=== PATIENT | female | born 1960 | race Caucasian/White ===

== ENCOUNTER 2019-08-11 00:38 | Outpatient (CLI) | payer BC, SELFPAY ==
--- NOTE | 2019-08-11 11:29 | DI.MAMMO_ITS ---
EXAM: MG MAMMO SCREENING CLINICAL HISTORY: SCREENING, Z12.31 TECHNIQUE: Bilateral full field digital CC and MLO mammographic images were obtained with 3D tomosyn thesis and utilizing computer aided detection (CAD). COMPARISON: No priors for comparison. FINDINGS: Masses/Architectural Distortion: None seen. Microcalcifications: No suspicious pleomorphic-type are seen. Skin Thickening/Nipple Retraction: None. IMPRESSION: 1. No significant interval change with no specific features of malignancy noted. 2. Unless there is more urgent need, screening mammography is recommended, as per [employer] guidelines. BI-RADS Category 1 - Negative Breast Density - Category C - Heterogeneously dense The mammogram demonstrates the patient's breast tissue is dense. Dense breast tissue is very common a nd is not abnormal but dense breast tissue can make it harder to find cancer on a mammogram. Also, de nse breast tissue may increase their breast cancer risk. This information about the result of the [facility] mogram report was provided to the patient to raise their awareness. Use this report when you speak wi th the patient about their risks for breast cancer, which includes their family history. At that time , you may recommend for more screening tests (Ultrasound or MRI) as they might be useful based on the ir risk. A negative radiographic report should not delay biopsy if a dominant or clinically suspicious mass is present. Up to ten percent of cancers are not identified on mammography. A negative report may reinforce clinical impression. Adenosis and dense breasts may obscure an underlying neoplasm. False positive reports average 6 to 10%. Patient will receive a letter notifying them of these results.
== END 2019-08-11 00:58 ==
PROVIDERS: PCP Nurse Practitioner Family; Visit Provider Nurse Practitioner Family
DX: Z12.31 Encounter for screening mammogram for malignant neoplasm of breast (principal)
CPT/HCPCS: 77063; 77067

== ENCOUNTER 2020-05-19 12:20 | Outpatient (REF) | payer BC, SELFPAY ==
--- NOTE | 2020-05-19 10:45 | PAPFT_PTH ---
PATIENT: Nubia Adler LOC: [facility], [facility]N #:[id number] AGE/SX: 59/F ROOM: RE05/19/[address]: Evy Mei : 1960 BED: DIS: 05/19/2020 SPEC #: [id number] RECD: 05/19/20 12:51 STATUS: SHAHZAD RELang #: [id number] JOHN: 05/19/20 10:[address]: Evy Mei DEPT: [facility] Cytology RECD BY: Norma Marks Tissues: 1 - CX/ENDOCX FOR PAP SMEARS Procedures: PAP THIN PREP/[facility] Screening Comments: [id number] (UNSATISFACTORY FOR EVALUATION)
[2020-05-19 12:55] LABS: HCT 36.4 % (36.0-46.0); HGB 12.2 g/dL (11.2-15.7); MCH 27.7 pg (27.0-33.0); MCHC 33.5 % (32.0-36.0); MCV 82.5 fL (80-95); MPV 10.4 fL (8.0-11.0); Platelet Count 355 10^3/uL (130-400); RBC 4.41 10^6/uL (3.93-5.22); RDW 13.2 % (11.7-14.6); RDW-SD 40.4 fL; WBC 8.45 10^3/uL (4.4-10.8)
[2020-05-19 13:35] LABS: Anion Gap 11.3 mmol/L (3-11); BUN 14 mg/dL (7-18); CO2 24.7 mmol/L (21.0-32.0); CREATININE 0.8 mg/dL (0.55-1.02); Calcium 8.7 mg/dL (8.5-10.1); Chloride 104 mmol/L (98-107); Glucose 82 mg/dL (74-106); Sodium 140 mmol/L (136-145); TSH (W/Ref FT4) 1.71 uIU/mL (0.36-3.74)
[2020-05-19 14:44] LABS: Iron 63 ug/dL (50-170); Total Iron Binding Capacity 324 ug/dL (250-450); Transferrin Sat 19 % (15-50)
[2020-05-19 16:05] LABS: ALT 24 U/L (14-59); AST 17 U/L (15-37)
[2020-05-19 16:16] LABS: Calculated LDL 198 mg/dL (<100); Cholesterol 294 mg/dL (<200); HDL Cholesterol 57 mg/dL (40-60); Triglyceride 198 mg/dL (<150)
== END 2020-05-19 12:21 | disposition home or self-care (01) ==
LOC: NCHCN 12:20
PROVIDERS: PCP Nurse Practitioner Family; Visit Provider Nurse Practitioner Family
DX: R53.83 Other fatigue (principal); Z00.00 Encounter for general adult medical examination without abnormal findings; Z12.4 Encounter for screening for malignant neoplasm of cervix; Z01.419 Encounter for gynecological examination (general) (routine) without abnormal findings; R87.615 Unsatisfactory cytologic smear of cervix
CPT/HCPCS: 80048; 80061; 85027; 88142; 83540; 83550; 84443; 84450; 84460

== ENCOUNTER 2020-06-29 17:04 | Outpatient (REF) | payer BC, SELFPAY ==
--- NOTE | 2020-06-29 16:30 | PAPFT_PTH ---
PAT[facility]: [facility] Adler [id number]GE/SX: 59/F ROOM: RE06/29/[address]: Evy Mei : 1960 BED: DIS: 06/29/2020 SPEC #: [id number] RECD: 06/30/20 12:53 STATUS: SHAHZAD FLORES #: [id number] JOHN: 06/29/20 16:[address]: Evy Mei DEPT: [facility] Cytology RECD BY: Norma Marks Tissues: 1 - CX/ENDOCX FOR PAP SMEARS Procedures: PAP THIN PREP/UVM Screening Comments: [id number] (UNSATISFACTORY FOR EVALUATION)
== END 2020-06-29 17:05 | disposition home or self-care (01) ==
LOC: NCHCN 17:04
PROVIDERS: PCP Nurse Practitioner Family; Visit Provider Nurse Practitioner Family
DX: Z00.00 Encounter for general adult medical examination without abnormal findings (principal); Z12.4 Encounter for screening for malignant neoplasm of cervix; Z01.419 Encounter for gynecological examination (general) (routine) without abnormal findings; R87.615 Unsatisfactory cytologic smear of cervix
CPT/HCPCS: 88142

== ENCOUNTER 2020-07-05 16:18 | Outpatient (REF) | payer BC, SELFPAY ==
--- NOTE | 2020-07-05 15:50 | CER_PTH ---
PATIENT: Nubia Adler LOC: N U#:[id number] AGE/SX: 59/F ROOM: RE07/05/[address]: Stephanie Dick DO : 1960 BED: DIS: 07/05/2020 SPEC #: [id number] RECD: 07/05/20 17:39 STATUS: SOUReyes REQ #: [id number] JOHN: 07/05/20 15:[address]: Stephanie Dick DEPT: Surgical Specimen RECD BY: Norma Marks ENTERED: 07/05/20 17:40 SP TYPE: CER OTHR DR: Evy Mei Tissues: 1 - CERVICAL BIOPSY Procedures: GROSS AND MICRO LEVEL 4 Comments: [id number]
== END 2020-07-05 16:19 | disposition home or self-care (01) ==
LOC: LBN 16:18
PROVIDERS: PCP Nurse Practitioner Family; Visit Provider Obstetrics & Gynecology
DX: N84.1 Polyp of cervix uteri (principal); N88.8 Other specified noninflammatory disorders of cervix uteri
CPT/HCPCS: 88305

== ENCOUNTER 2020-09-06 17:57 | Outpatient (REF) | payer BC, SELFPAY ==
--- NOTE | 2020-09-06 15:40 | PAPFT_PTH ---
PATIENT: Nubia Adler [id number] AGE/SX: 59/F ROOM: RE09/06/[address]: Evy Mei : 1960 BED: DIS: 09/06/2020 SPEC #: [id number] RECD: 09/07/20 12:31 STATUS: SHAHZAD RELang #: [id number] JOHN: 09/06/20 15:[address]: Evy Mei DEPT: [facility] Cytology RECD BY: Norma Marks Tissues: 1 - CX/ENDOCX FOR PAP SMEARS Procedures: PAP THIN PREP/UVM Screening HPV DNA PROBE Comments: [id number]
== END 2020-09-06 17:58 | disposition home or self-care (01) ==
LOC: NCHCN 17:57
PROVIDERS: PCP Nurse Practitioner Family; Visit Provider Nurse Practitioner Family
DX: Z00.00 Encounter for general adult medical examination without abnormal findings (principal); Z12.4 Encounter for screening for malignant neoplasm of cervix; Z01.419 Encounter for gynecological examination (general) (routine) without abnormal findings; Z11.51 Encounter for screening for human papillomavirus (HPV)
CPT/HCPCS: 88142; 87624

== ENCOUNTER 2020-09-18 19:21 | Outpatient (REF) | payer BC, SELFPAY | END 2020-09-18 19:22 | disposition home or self-care (01) | LOC: NCHCN 19:21 | PROVIDERS: PCP Nurse Practitioner Family; Visit Provider Family Medicine | DX: R30.0 Dysuria (principal) | CPT/HCPCS: 87086 ==

== ENCOUNTER 2021-02-08 16:40 | Outpatient (REF) | payer BC, SELFPAY ==
[2021-02-09 11:11] LABS: COVID-19 RT-PCR UVMMC Result Negative (Negative)
== END 2021-02-08 16:41 | disposition home or self-care (01) ==
LOC: NCHCN 16:40
PROVIDERS: PCP Nurse Practitioner Family; Visit Provider Nurse Practitioner Family
DX: Z20.822 Contact with and (suspected) exposure to COVID-19 (principal)
CPT/HCPCS: U0003

== ENCOUNTER 2021-04-17 14:45 | Outpatient (REF) | payer BC, SELFPAY ==
[2021-04-17 16:21] LABS: ALT 25 U/L (14-59); AST 17 U/L (15-37); Anion Gap 8.7 mmol/L (3-11); BUN 12 mg/dL (7-18); CO2 27.3 mmol/L (21.0-32.0); CREATININE 0.8 mg/dL (0.55-1.02); Calcium 8.8 mg/dL (8.5-10.1); Calculated LDL 205 mg/dL (<100); Chloride 103 mmol/L (98-107); Cholesterol 299 mg/dL (<200); Glucose 82 mg/dL (74-106); HDL Cholesterol 56 mg/dL (40-60); Potassium 4.5 mmol/L (3.5-5.1); Sodium 139 mmol/L (136-145); Triglyceride 191 mg/dL (<150)
[2021-04-19 10:13] LABS: Lipoprotein (a) 144 nmol/L (<75)
== END 2021-04-17 14:46 | disposition home or self-care (01) ==
LOC: NCHCN 14:45
PROVIDERS: PCP Nurse Practitioner Family; Visit Provider Nurse Practitioner Family
DX: E78.5 Hyperlipidemia, unspecified (principal); R53.83 Other fatigue; R03.0 Elevated blood-pressure reading, without diagnosis of hypertension
CPT/HCPCS: 80048; 80061; 83695; 84450; 84460

== ENCOUNTER 2021-06-11 01:54 | Outpatient (CLI) | payer BC, SELFPAY ==
--- NOTE | 2021-06-11 16:40 | DI.MAMMO_ITS ---
Exam(s) MAMMO SCREENING EXAM: MAMMO SCREENING CLINICAL HISTORY: SCREENING FOR BREAST CANCER Z12.39. TECHNIQUE: Bilateral full field digital CC and MLO mammographic images were obtained with 3D tomosyn thesis and utilizing computer aided detection (CAD). COMPARISON: Prior baseline mammogram of July 2019 was reviewed. FINDINGS: Fibroglandular tissue is again noted be moderately dense. There are no CAD designations. There are no new spiculated masses nor malignant appearing microcalcification groups. Asymmetric density in the immediate para areolar region of the left breast seen on the CC 3D images i s unchanged There is no significant architectural distortion nor skin thickening-retraction. IMPRESSION: Stable benign-appearing finding. No radiographic evidence of malignancy BI-RADS Category 2 - Benign Findings Breast Density - Category C - Heterogeneously dense Breast density Category C or D implies that the patient has dense breast tissue. Dense breast tissue can make it harder to find cancer on a mammogram. Dense breast tissue is also associated with an incr eased risk of breast cancer. This information about the result of the mammogram report was provided to the patient to raise their awareness. Use this report when you speak with the patient about their risks for breast cancer, which includes their family history. At that time, you may recommend additional screening tests (Ultrasoun d or MRI) as these tests may add significant information. A negative radiographic report should not delay biopsy if a dominant or clinically suspicious mass is present. Up to ten percent of cancers are not identified on mammography. A negative report may reinforce clinical impression. Adenosis and dense breasts may obscure an underlying neoplasm. False positive reports average 6 to 10%. Patient will receive a letter notifying them of these results.
== END 2021-06-11 02:14 ==
PROVIDERS: PCP Nurse Practitioner Family; Visit Provider Nurse Practitioner Family
DX: Z12.31 Encounter for screening mammogram for malignant neoplasm of breast (principal)
CPT/HCPCS: 77063; 77067

== ENCOUNTER → 2021-12-25 00:59 | Outpatient (CLI) | payer BC, SELFPAY ==
--- NOTE | 2021-12-25 | DI.CT_ITS ---
Exam(s) CT BRAIN CTA EXAM: CT BRAIN CTA CLINICAL HISTORY: FAMILY H/O ANEURYSM,Z92.0, HEADACHE,R51.9. TECHNIQUE: Imaging Protocol: Both noninfused and contrast infused CT scans of the brain were perform ed. IV Contrast Dose =100 cc Axial computed tomography images with coronal and sagittal reformatted images were created and review ed COMPARISON: No exams were available for comparison FINDINGS: Field of view of this study is from the skull base up; neck was not scanned. Anterior circulation: Both internal carotid arteries are patent in the skull base-carotid canals. Th e internal carotid arteries are also patent within the cavernous sinuses and supraclinoid aspects. N o aneurysms at this level. Both A1 segments are patent as are the anterior cerebral arteries. There is no evidence of aneurysm at the level of the anterior communicating artery. Both middle cerebral arteries are patent without evidence of significant focal narrowing and no aneur ysms evident. Posterior circulation: Both vertebral arteries contribute to the formation of the basilar artery at t he skull base and the basilar artery ascends with normal luminal diameter in the midline. Distally i t gives off patent superior cerebellar arteries and above this level terminates as patent posterior c erebral arteries. There is no aneurysm of the tip of the basilar artery nor elsewhere in the redding- of-[place]. BRAIN: No evidence of intracranial hemorrhage, mass effect, or shift of midline structures. No extra -axial fluid collections. Ventricles are not enlarged or shifted. There is no blood within the vent ricular system nor within the basal cisterns. There are no ring enhancing lesions in the brain. There is no abnormal meningeal enhancement, focal nor diffuse. IMPRESSION: 1. Patent intracranial arteries. 2. No evidence of intracranial aneurysm, as per request. 3. No ring enhancing lesions in the brain nor abnormal meningeal enhancement. 4. Essentially no significant intracranial findings. Incidentally noted is seen fluid level in the right maxillary sinus consistent with sinusitis. No mraietta ne dehiscence. The left maxillary sinus is clear as are the sphenoid and frontal sinuses and ethmoid al air cells. Mastoid air cells are clear as are the aditus ad antrum and middle ear cavities. RADIATION DOSE DELIVERED: 1,817.36mGy.cm Total DLP DATA REPOSITORY: All CT scans at this facility are submitted to the National Radiology Data Registry (NRDR) Dose Index Registry (DIR) with the [employer] (A[employer]). RADIATION OPTIMIZATION: All CT scans at this facility use at least one of these dose optimization te chniques: automated exposure control; mA and/or kV adjustment per patient size (includes targeted exa ms where dose is matched to clinical indication); or iterative reconstruction.
[2021-12-25 13:13] LABS: CREATININE 0.8 mg/dL (0.55-1.02); Estimated GFR 83.78 (mL/min/1.73m2)
[2021-12-25] MEDS: Omnipaque 350 MG/ML 500 ML BTL-Imaging package IJ (14:22)
[2021-12-25] MEDS: Normal Saline Flush 10 ML SYR IVP (14:24)
== END ==
PROVIDERS: PCP Nurse Practitioner Family; Visit Provider Nurse Practitioner Family
DX: R51.9 Headache, unspecified (principal); Z92.0 Personal history of contraception
CPT/HCPCS: 70496; 82565

== ENCOUNTER 2022-04-23 13:36 | Outpatient (REF) | payer BC, SELFPAY ==
[2022-04-23 14:54] LABS: HCT 38.3 % (36.0-46.0); HGB 12.5 g/dL (11.2-15.7); MCH 27.8 pg (27.0-33.0); MCHC 32.6 % (32.0-36.0); MCV 85 fL (80-95); MPV 10.5 fL (8.0-11.0); Platelet Count 373 10^3/uL (130-400); RBC 4.49 10^6/uL (3.93-5.22); RDW 12.8 % (11.7-14.6); WBC 7.71 10^3/uL (4.4-10.8)
[2022-04-23 15:09] LABS: ALT 23 U/L (14-59); AST 21 U/L (15-37); Calculated LDL 210 mg/dL (<100); Cholesterol 307 mg/dL (<200); HDL Cholesterol 61 mg/dL (40-60); Triglyceride 182 mg/dL (<150)
== END 2022-04-23 13:37 | disposition home or self-care (01) ==
LOC: NCHCN 13:36
PROVIDERS: PCP Nurse Practitioner Family; Visit Provider Nurse Practitioner Family
DX: Z00.00 Encounter for general adult medical examination without abnormal findings (principal); E78.5 Hyperlipidemia, unspecified; F32.89 Other specified depressive episodes
CPT/HCPCS: 80061; 85027; 84450; 84460

== ENCOUNTER 2022-06-18 01:12 | Outpatient (CLI) | payer BC, SELFPAY ==
--- NOTE | 2022-06-18 | DI.MAMMO_ITS ---
Exam(s) MAMMO SCREENING EXAM: MAMMO SCREENING CLINICAL HISTORY: SCREENING, Z12.39 TECHNIQUE: Bilateral full field digital CC and MLO mammographic images were obtained with 3D tomosyn thesis and utilizing computer aided detection (CAD). COMPARISON: Available for comparison. FINDINGS: Masses/Architectural Distortion: None seen. Microcalcifications: No suspicious pleomorphic-type are seen. Skin Thickening/Nipple Retraction: None. IMPRESSION: 1. No significant interval change with no specific features of malignancy noted. 2. Unless there is more urgent need, screening mammography is recommended, as per [employer] guidelines. BI-RADS Category 1 - Negative Breast Density - Category C - Heterogeneously dense Breast density category C or D implies that the patient has dense breast tissue. Dense breast tissue is very common and is not abnormal but dense breast tissue can make it harder to find cancer on a ma mmogram. Also, dense breast tissue may increase their breast cancer risk. This information about the result of the mammogram report was provided to the patient to raise their awareness. Use this report when you speak with the patient about their risks for breast cancer, which includes their family hist ory. At that time, you may recommend for more screening tests (Ultrasound or MRI) as they might be us eful based on their risk. A negative radiographic report should not delay biopsy if a dominant or clinically suspicious mass is present. Up to ten percent of cancers are not identified on mammography. A negative report may reinforce clinical impression. Adenosis and dense breasts may obscure an underlying neoplasm. False positive reports average 6 to 10%. Patient will receive a letter notifying them of these results.
== END 2022-06-18 01:32 ==
LOC: DI 01:13
PROVIDERS: PCP Nurse Practitioner Family; Visit Provider Nurse Practitioner Family
DX: Z12.31 Encounter for screening mammogram for malignant neoplasm of breast (principal)
CPT/HCPCS: 77063; 77067

== ENCOUNTER 2022-06-25 16:43 | Outpatient (REF) | payer BC, SELFPAY ==
[2022-06-25 22:00] LABS: ALT 25 U/L (14-59); AST 17 U/L (15-37); Alkaline Phosphatase 129 U/L (46-116); Anion Gap 8.7 mmol/L (3-11); BUN 14 mg/dL (7-18); Bilirubin, Total 0.3 mg/dL (0.2-1.0); CO2 28.3 mmol/L (21.0-32.0); CREATININE 0.8 mg/dL (0.55-1.02); Calcium 9.1 mg/dL (8.5-10.1); Chloride 106 mmol/L (98-107); Estimated GFR 83.78 (mL/min/1.73m2); Glucose 103 mg/dL (74-106); Potassium 4.4 mmol/L (3.5-5.1); Sodium 143 mmol/L (136-145); Total Protein 7.1 g/dL (6.4-8.2)
[2022-06-27 12:53] LABS: IgA 188 mg/dL (85-499); Interpretation (See Note); Tissue Transglutaminase IgA <1.2 U/mL (<4.0)
== END 2022-06-25 16:44 | disposition home or self-care (01) ==
LOC: NCHCN 16:43
PROVIDERS: PCP Nurse Practitioner Family; Visit Provider Nurse Practitioner Family
DX: R14.0 Abdominal distension (gaseous) (principal)
CPT/HCPCS: 80053; 82784; 83516

== ENCOUNTER 2023-05-02 15:46 | Outpatient (REF) | payer BC, SELFPAY ==
[2023-05-02 20:59] LABS: HCT 38.3 % (36.0-46.0); HGB 12.6 g/dL (11.2-15.7); MCH 27.8 pg (27.0-33.0); MCHC 32.9 % (32.0-36.0); MCV 84 fL (80-95); MPV 10.2 fL (8.0-11.0); Platelet Count 381 10^3/uL (130-400); RBC 4.54 10^6/uL (3.93-5.22); RDW 13.8 % (11.7-14.6); RDW-SD 42.7 fL; WBC 9.59 10^3/uL (4.4-10.8)
[2023-05-02 21:14] LABS: ALT 23 U/L (14-59); AST 17 U/L (15-37); Albumin 3.8 g/dL (3.4-5.0); Alkaline Phosphatase 134 U/L (46-116); Anion Gap 8.1 mmol/L (3-11); BUN 10 mg/dL (7-18); Bilirubin, Total 0.3 mg/dL (0.2-1.0); CO2 28.9 mmol/L (21.0-32.0); CREATININE 0.7 mg/dL (0.55-1.02); Calcium 8.8 mg/dL (8.5-10.1); Calculated LDL 204 mg/dL (<100); Chloride 106 mmol/L (98-107); Cholesterol 327 mg/dL (<200); Estimated GFR 97.72 (mL/min/1.73m2); Glucose 105 mg/dL (74-106); HDL Cholesterol 59 mg/dL (40-60); Sodium 143 mmol/L (136-145); Triglyceride 323 mg/dL (<150)
== END 2023-05-02 15:47 | disposition home or self-care (01) ==
LOC: NCHCN 15:46
PROVIDERS: PCP Nurse Practitioner Family; Visit Provider Nurse Practitioner Family
DX: Z00.00 Encounter for general adult medical examination without abnormal findings (principal)
CPT/HCPCS: 80053; 80061; 85027

== ENCOUNTER → 2023-06-27 01:07 | Outpatient (CLI) | payer BC, SELFPAY ==
--- NOTE | 2023-06-27 | DI.MAMMO_ITS ---
Exam(s) MAMMO SCREENING EXAM: MAMMO SCREENING CLINICAL HISTORY: SCREENING, Z12.31. TECHNIQUE: Bilateral full field digital CC and MLO mammographic images were obtained with 3D tomosyn thesis and utilizing computer aided detection (CAD). COMPARISON: Prior mammograms were reviewed. FINDINGS: There has been no significant change in the appearance and distribution of the fibroglandular tissue. There are no new spiculated masses nor malignant appearing microcalcification groups. There is no significant architectural distortion nor skin thickening-retraction. IMPRESSION: No radiographic evidence of malignancy. BI-RADS Category 1 - Negative Breast Density - Category C - Heterogeneously dense Breast density Category C or D implies that the patient has dense breast tissue. Dense breast tissue can make it harder to find cancer on a mammogram. Dense breast tissue is also associated with an incr eased risk of breast cancer. This information about the result of the mammogram report was provided to the patient to raise their awareness. Use this report when you speak with the patient about their risks for breast cancer, which includes their family history. At that time, you may recommend additional screening tests (Ultrasoun d or MRI) as these tests may add significant information. A negative radiographic report should not delay biopsy if a dominant or clinically suspicious mass is present. Up to ten percent of cancers are not identified on mammography. A negative report may reinforce clinical impression. Adenosis and dense breasts may obscure an underlying neoplasm. False positive reports average 6 to 10%. Patient will receive a letter notifying them of these results.
== END ==
PROVIDERS: PCP Nurse Practitioner Family; Visit Provider Nurse Practitioner Family
DX: Z12.31 Encounter for screening mammogram for malignant neoplasm of breast (principal); R92.333 Mammographic heterogeneous density, bilateral breasts
CPT/HCPCS: 77063; 77067

== ENCOUNTER 2024-08-06 19:42 | Outpatient (REF) | payer BC, SELFPAY ==
[2024-08-06 15:27] LABS: HCT 36.2 % (36.0-46.0); HGB 12.2 g/dL (11.2-15.7); MCH 28.4 pg (27.0-33.0); MCHC 33.7 % (32.0-36.0); MCV 84 fL (80-95); MPV 10.7 fL (8.0-11.0); Platelet Count 363 10^3/uL (130-400); RBC 4.29 10^6/uL (3.93-5.22); RDW 12.9 % (11.7-14.6); RDW-SD 39.4 fL; WBC 9.08 10^3/uL (4.4-10.8)
[2024-08-06 15:48] LABS: ALT 22 U/L (14-59); AST 19 U/L (15-37); Alkaline Phosphatase 102 U/L (46-116); BUN 14 mg/dL (7-18); Bilirubin, Total 0.3 mg/dL (0.2-1.0); CREATININE 0.8 mg/dL (0.55-1.02); Calcium 9.2 mg/dL (8.5-10.1); Chloride 103 mmol/L (98-107); Estimated GFR 82.74 (mL/min/1.73m2); Glucose 85 mg/dL (74-106); Potassium 4.2 mmol/L (3.5-5.1); Sodium 137 mmol/L (136-145)
== END 2024-08-06 19:43 | disposition home or self-care (01) ==
LOC: NCHCN 19:42
PROVIDERS: PCP Nurse Practitioner Family; Visit Provider Nurse Practitioner Family
DX: Z00.00 Encounter for general adult medical examination without abnormal findings (principal)
CPT/HCPCS: 80053; 85027